=== PATIENT | female | born 1955 | race African-American/Black ===

== ENCOUNTER 2019-05-22 02:56 | Inpatient (IN) | payer MEDICAID ==
[~2019-05-22] VITALS: Ht 152.4 cm; Wt 83.9 kg
[2019-05-22 04:43] LABS: BASOPHILS % 0.7 % (0.0-2.0); EOSINOPHILS % 2.5 % (0.0-5.0); HEMATOCRIT. 43.5 % (36.0-48.0); HEMOGLOBIN. 14.4 g/dL (12.0-16.0); LYMPHOCYTES % 29.1 % (20.0-50.0); MEAN CORPUSCULAR HEMOGLOBIN 29.5 pg (28.0-32.0); MEAN CORPUSCULAR VOLUME 89.3 fL (81.0-99.0); MEAN PLATELET VOLUME 9.1 fl (7.4-10.4); MONOCYTES % 4.9 % (2.0-8.0); NEUTROPHILS % 62.8 % (40.0-76.0); PLATELET 233 x1000/uL (130-400); RED BLOOD CELL COUNT 4.88 mill/uL (4.2-5.4); RED CELL DISTRIBUTION WIDTH 15.2 % (11.6-14.6)
[2019-05-22 04:52] LABS: CHLORIDE 116 mEq/L (98-107)
[2019-05-22] MEDS ORDERED: FUROSEMIDE 40MG/4ML VIAL IVP ONE (05:30)
[2019-05-22] MEDS ORDERED: FUROSEMIDE 40MG TABLET PO ONE (05:30)
[2019-05-22] MEDS: METOPROLOL TARTRATE 25MG TABLET PO SCH ×2 (12:22→18:35)
[2019-05-22] MEDS ORDERED: IPRATROPIUM/ALBUTEROL 0.5-3(2.5)MG/3ML NEB HHN PRN (17:30)
[2019-05-22] MEDS ORDERED: ACETAMINOPHEN 325MG TABLET PO PRN (17:30)
[2019-05-22] MEDS ORDERED: ONDANSETRON HCL 4MG/2ML INJ IV PRN (17:30)
[2019-05-22] MEDS ORDERED: DOCUSATE SODIUM 100MG CAPSULE PO PRN (17:30)
[2019-05-22] MEDS ORDERED: LORAZEPAM 0.5MG TABLET PO PRN (17:30)
[2019-05-22] MEDS ORDERED: HYDROCODONE/ACETAMINOPHEN 5/325MG TABLET PO PRN (17:30)
[2019-05-22] MEDS ORDERED: CLONIDINE 0.1MG TABLET PO PRN (17:30)
[2019-05-22] MEDS ORDERED: GUAIFENESIN 200MG/10ML SUGAR FREE UDC PO PRN (17:30)
[2019-05-22] MEDS ORDERED: POTASSIUM CHLORIDE 20MEQ TABLET SR PO NR (17:30)
[2019-05-22 17:45] VITALS: BP 187/119
[2019-05-22 17:46] VITALS: BP 187/119
[2019-05-22] MEDS: CLONIDINE 0.1MG TABLET PO SCH (18:35)
[2019-05-22 20:00] VITALS: BP 139/89
[2019-05-22] MEDS: AMLODIPINE 5MG TABLET PO SCH (21:14)
[2019-05-23] VITALS (7 sets, daily range): BP systolic 124–167; BP diastolic 71–111
[2019-05-23] MEDS: CLONIDINE 0.1MG TABLET PO SCH ×3 (01:07→21:57)
[2019-05-23 02:09] LABS: OPIATES URINE SCREEN NEGATIVE (NEGATIVE)
[2019-05-23 02:10] LABS: *AMPHETAMINES SCREEN URINE NEGATIVE (NEGATIVE); *BARBITURATES SCREEN URINE NEGATIVE (NEGATIVE); *BENZODIAZEPINES SCREEN URINE NEGATIVE (NEGATIVE); *COCAINE SCREEN URINE PRESUMTIVE POSITIVE (NEGATIVE); CANNABINOID URINE SCREEN PRESUMTIVE POSITIVE (NEGATIVE); METHADONE URINE SCREEN NEGATIVE (NEGATIVE); PHENCYCLIDINE URINE SCREEN NEGATIVE (NEGATIVE)
[2019-05-23 08:24] LABS: BASOPHILS % 0.5 % (0.0-2.0); EOSINOPHILS % 1.9 % (0.0-5.0); HEMATOCRIT. 43.3 % (36.0-48.0); HEMOGLOBIN. 14.4 g/dL (12.0-16.0); MEAN CORPUSCULAR HEMOGLOBIN 29.4 pg (28.0-32.0); MEAN CORPUSCULAR VOLUME 88.2 fL (81.0-99.0); MEAN PLATELET VOLUME 9.2 fl (7.4-10.4); MONOCYTES % 6.3 % (2.0-8.0); NEUTROPHILS % 58.3 % (40.0-76.0); PLATELET 229 x1000/uL (130-400); RED BLOOD CELL COUNT 4.91 mill/uL (4.2-5.4); RED CELL DISTRIBUTION WIDTH 15.5 % (11.6-14.6)
[2019-05-23 08:35] LABS: CHLORIDE 108 mEq/L (98-107)
[2019-05-23 08:40] LABS: LDL CHOLESTEROL 154 mg/dL (5-100)
[2019-05-23 08:42] LABS: HDL CHOLESTEROL 72 mg/dL (40-59)
[2019-05-23] MEDS: METOPROLOL TARTRATE 25MG TABLET PO SCH ×2 (08:45→21:00)
[2019-05-23] MEDS: AMLODIPINE 5MG TABLET PO SCH ×2 (09:09→21:57)
[2019-05-23] MEDS ORDERED: POTASSIUM CHLORIDE 20MEQ TABLET SR PO NR (14:26)
[2019-05-23] MEDS ORDERED: CLONIDINE 0.1MG TABLET PO SCH (16:15)
[2019-05-23] MEDS ORDERED: ATORVASTATIN CALCIUM 20MG TABLET PO SCH (21:00)
[2019-05-23] MEDS ORDERED: ATORVASTATIN CALCIUM 40MG TABLET PO SCH (21:00)
[2019-05-23] MEDS ORDERED: IOHEXOL-300 50 ML BOTTLE IV ONE (22:39)
[2019-05-23] MEDS ORDERED: IOHEXOL-300 100 ML BOTTLE ONE (22:40)
[2019-05-24] VITALS: BP 134/76
[2019-05-24 04:00] VITALS: BP 141/75
[2019-05-24] MEDS: METOPROLOL TARTRATE 25MG TABLET PO SCH (09:00)
[2019-05-24] MEDS: CLONIDINE 0.1MG TABLET PO SCH (09:00)
[2019-05-24] MEDS: AMLODIPINE 5MG TABLET PO SCH (09:00)
[2019-05-24] MEDS ORDERED: LIP40 PO (11:21)
[2019-05-24] MEDS ORDERED: AMLO5TAB88 PO (11:21)
[2019-05-24 13:21] VITALS: BP 146/84
== END 2019-05-24 14:25 | disposition home or self-care (01) | DRG 198 ==
LOC: ER 02:56 → 7WST 05:23 → ENRESERV 16:32
PROVIDERS: ADMIT Internal Medicine; ATTEND Internal Medicine
DX: I24.8 Other forms of acute ischemic heart disease (principal); I08.1 Rheumatic disorders of both mitral and tricuspid valves; E78.5 Hyperlipidemia, unspecified; I16.0 Hypertensive urgency; E87.6 Hypokalemia; J44.9 Chronic obstructive pulmonary disease, unspecified; I16.1 Hypertensive emergency; K76.9 Liver disease, unspecified; I10 Essential (primary) hypertension
CPT/HCPCS: 36415; 71045; 71260; 80048; 80053; 80061; 80305; 83036; 83880; 84484; 85025; 93005; 93306; 96374; 99285; J1940; Q9967

== ENCOUNTER 2021-06-10 08:47 | Emergency (ER) | payer MEDICAID ==
[~2021-06-10] VITALS: Ht 152.4 cm; Wt 86.0 kg
[~2021-06-10 08:47] MED LIST: AMLO5TAB88 PO; LIP40 PO
[2021-06-10] MEDS ORDERED: METOPROLOL SUCCINATE 50MG ER TABLET PO STA (09:21)
[2021-06-10] MEDS ORDERED: LISINOPRIL 20MG TABLET PO ONE (09:30)
[2021-06-10] MEDS ORDERED: POTASSIUM CHLORIDE 10MEQ TABLET SR PO ONE (09:30)
[2021-06-10] MEDS ORDERED: FUROSEMIDE 20MG TABLET PO ONE (09:30)
[2021-06-10] MEDS ORDERED: APIXABAN 5 MG TABLET PO STA (09:34)
[2021-06-10] MEDS ORDERED: FURO-152 MT (11:10)
[2021-06-10] MEDS ORDERED: METO-385 MT (11:10)
[2021-06-10] MEDS ORDERED: POTA-9 MT (11:10)
[2021-06-10] MEDS ORDERED: APIX5TAB PO (11:10)
[2021-06-10] MEDS ORDERED: LISI20TA31 MT (11:10)
[2021-06-10 11:15] VITALS: BP 188/109
== END 2021-06-10 11:31 | disposition home or self-care (01) ==
LOC: ER 08:47
DX: I10 Essential (primary) hypertension (principal); Z76.0 Encounter for issue of repeat prescription; Z91.14 Patient's other noncompliance with medication regimen
CPT/HCPCS: 99284

== ENCOUNTER 2021-06-17 10:56 | Emergency (ER) | payer MEDICAID ==
[~2021-06-17] VITALS: Ht 152.4 cm; Wt 89.0 kg
[~2021-06-17 10:56] MED LIST changes: +APIX5TAB PO; +FURO-152 MT; +LISI20TA31 MT; +METO-385 MT; +POTA-9 MT
[2021-06-17] MEDS ORDERED: LISINOPRIL 20MG TABLET PO ONE (11:15)
[2021-06-17 12:08] LABS: BASOPHILS % 0.6 % (0.0-2.0); EOSINOPHILS % 2.7 % (0.0-5.0); HEMOGLOBIN. 12.7 g/dL (12.0-16.0); LYMPHOCYTES % 28.2 % (20.0-50.0); MEAN CORPUSCULAR HEMOGLOBIN 28.4 pg (28.0-32.0); MEAN CORPUSCULAR VOLUME 87.2 fL (81.0-99.0); MEAN PLATELET VOLUME 8.7 fl (7.4-10.4); MONOCYTES % 5.2 % (2.0-8.0); NEUTROPHILS % 63.3 % (40.0-76.0); PLATELET 279 x1000/uL (130-400); RED BLOOD CELL COUNT 4.47 mill/uL (4.2-5.4); RED CELL DISTRIBUTION WIDTH 17.1 % (11.6-14.6)
[2021-06-17] MEDS ORDERED: APIX5TAB MT (12:30)
[2021-06-17] MEDS ORDERED: LISI20TA31 MT (12:30)
[2021-06-17] MEDS ORDERED: METO-539 MT (12:30)
[2021-06-17] MEDS ORDERED: FURO-152 MT (12:30)
[2021-06-17 12:32] VITALS: BP 186/101
[2021-06-17] MEDS ORDERED: POTA10CA42 MT (12:41)
== END 2021-06-17 12:45 | disposition home or self-care (01) ==
LOC: ER 10:56
DX: I16.0 Hypertensive urgency (principal); I11.0 Hypertensive heart disease with heart failure; I50.9 Heart failure, unspecified; F12.10 Cannabis abuse, uncomplicated; Z76.0 Encounter for issue of repeat prescription
CPT/HCPCS: 36415; 80048; 85025; 99283

== ENCOUNTER 2021-06-29 11:55 | Emergency (ER) | payer MEDICAID ==
[~2021-06-29] VITALS: Ht 165.1 cm; Wt 77.0 kg
[~2021-06-29 11:55] MED LIST changes: +APIX5TAB MT; +METO-539 MT; +POTA10CA42 MT
[2021-06-29 12:16] VITALS: BP 142/92
[2021-06-29] MEDS ORDERED: SODIUM CHLORIDE 0.9% 1,000 ML IV ONE (13:15)
[2021-06-29 15:06] LABS: BASOPHILS % 0.3 % (0.0-2.0); EOSINOPHILS % 1.3 % (0.0-5.0); HEMATOCRIT. 48.5 % (36.0-48.0); HEMOGLOBIN. 16.4 g/dL (12.0-16.0); LYMPHOCYTES % 24.4 % (20.0-50.0); MEAN PLATELET VOLUME 9.4 fl (7.4-10.4); MONOCYTES % 5.5 % (2.0-8.0); NEUTROPHILS % 68.5 % (40.0-76.0); PLATELET 175 x1000/uL (130-400); RED BLOOD CELL COUNT 5.44 mill/uL (4.2-5.4); RED CELL DISTRIBUTION WIDTH 16.6 % (11.6-14.6)
== END 2021-06-29 17:20 | disposition left against medical advice (07) ==
LOC: ER 13:10 → CANBEDREQ 21:40
DX: I95.9 Hypotension, unspecified (principal); R55 Syncope and collapse; I10 Essential (primary) hypertension
CPT/HCPCS: 36415; 70450; 71045; 85025; 93005; 96360; 99285; J7030